=== PATIENT | male | born 1975 | race Caucasian/White ===

== ENCOUNTER 2017-12-27 15:05 | Emergency (ER) | payer MEDICAID, OTHER ==
[2017-12-27] MEDS: IBUPROFEN 600 MG TAB PO (15:33)
== END 2017-12-27 16:04 | disposition home or self-care (01) ==
LOC: E/R 15:05 → FTE 16:04
DX: S51.812A Laceration without foreign body of left forearm, initial encounter (principal); I10 Essential (primary) hypertension; W11.XXXA Fall on and from ladder, initial encounter; Y92.89 Other specified places as the place of occurrence of the external cause
CPT/HCPCS: 12002; 99283-25